=== PATIENT | female | born 1980 | race Caucasian/White ===

== ENCOUNTER 2018-11-04 02:52 | Emergency (ER) | payer BC ==
[2018-11-04] MEDS ORDERED: Sodium Chloride 0.9% 10 ML Syringe FLUSH PRN (03:15)
[2018-11-04] MEDS ORDERED: Famotidine 20 MG/2 ML SDV IVPUSH ONE (03:15)
--- NOTE | 2018-11-04 03:15 | EDM.PDOC ---
ED HPI GENERAL MEDICAL PROBLEM - General Chief Complaint: Chest Pain Stated Complaint: epigastric pain Time Seen by Provider: 11/04/18 03:10 Source of Information: Reports: Family (). Denies: Old Records (No [facility] records available) History Limitations: Reports: No Limitations - History of Present Illness INITIAL COMMENTS - FREE TEXT/NARRATIVE: The patient was brought to the emergency room via private automobile by her for evaluation of 10/10 sharp superior epigastric pain with symptoms starting at about 23:30 hours this evening. Patient did take one dose of Prilosec at that time with additional 2 OTC antacid tablets at about 00:30 hours with no improvement of her symptoms. She did have some kenyan fries at about 10:30 a.m., however no previous history of fatty food intolerance. LMP about one week ago was normal. She did have a normal bowel movement at about midnight this evening. No history of colic, gross hematuria, or other UTI symptoms. No recent history of other abdominal pain, nausea, diarrhea, melena, gross hematochezia, or any food intolerance. The patient denies any chest pain/ pressure, heart flutter, dizziness, orthostasis, orthopnea, diaphoresis, paresthesias, recent decreased exercise tolerance, or any other anginal-type symptoms. The patient also denies any recent fever, cough, wheezing, dyspnea, etc.. Onset: Gradual Onset Date: 11/03/18 Onset Time: 23:30 Duration: Constant, Getting Worse Location: Reports: Abdomen. Denies: Head, Face, Neck, Chest, Back, Pelvis, Upper Extremity, Left, Upper Extremity, Right, Radiates to Quality: Reports: Same as Previous Episode, Sharp Severity: Severe Improves with: Reports: None Worsens with: Reports: None Context: Reports: Other (As above) Associated Symptoms: Reports: No Other Symptoms. Denies: Confusion, Chest Pain , Cough, Diaphoresis, Fever/Chills, Headaches, Loss of Appetite, Malaise, Nausea /Vomiting, Seizure, Shortness of Breath, Syncope, Weakness Treatments OFFAL BALER: Reports: Other Medication(s) Epigastric Pain Score (Numeric/FACES): 10 - Related Data Allergies Allergy/AdvReac Type Severity Reaction Status Date / Time guaifenesin [From Mucinex] AdvReac Numbness Verified 11/04/18 03:00 Home Meds: Home Meds Calcium Carb/Magnesium Hydrox [Antacid Chewable Tablet] 2 each PO QID PRN [History] Famotidine [Pepcid] 20 mg PO BID PRN #30 tab 11/04/18 [Rx] Multivitamin [Multi-Day Vitamins] 1 each PO DAILY 11/04/18 [History] Omeprazole Magnesium [Prilosec Otc] 20 mg PO BIDAC #20 tablet. 11/04/18 [Rx] Past Medical History HEENT History: Reports: Impaired Vision, Other (See Below). Denies: Allergic Rhinitis, Cataract, Glaucoma, Hard of Hearing, Macular Degeneration, Otitis Media, Retinal Detachment Other HEENT History: Patient wears glasses and soft contact lenses. Cardiovascular History: Reports: None, Other (See Below). Denies: Aneurysm, Arrhythmia, Blood Clots/VTE/DVT, CAD, Heart Failure, Heart Murmur, High Cholesterol, Hypertension, NC, Syncope Other Cardiovascular History: She does not know her cholesterol status. Respiratory History: Reports: None. Denies: Asthma, Bronchitis, Recurrent, COPD , Intubation, Difficult, Intubation, Previous, PE, Pneumothorax, Sleep Apnea, TB Gastrointestinal History: Reports: None. 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 Denies: Dysfunctional Uterine Bleeding, Endometriosis, Fibroids, Polycystic Ovaries, Spontaneous : 2 LMP (Approximate): Other (See Below) Other MULTIFOLD OPERATOR History: LMP one week ago as above. C-sections 2 secondary to failure to progress with no other problems during pregnancies or deliveries. Musculoskeletal History: Reports: None. Denies: Arthritis, Back Pain, Chronic, Fracture, Gout, Neck Pain, Chronic, Osteoarthritis, RA, SLE Neurological History: Reports: None, Headaches, Chronic. Denies: Cerebral Aneurysms, Concussion, CVA, Head Trauma, Migraines, Neuropathy, Peripheral, Seizure, TIA, Vertigo Psychiatric History: Reports: Anxiety, Depression. Denies: Abuse, Victim of, ADD, ADHD, Addiction, Psych Hospitalization(s), PTSD, Suicide Attempt, Suicidal Ideation Endocrine/Metabolic History: Reports: None. Denies: Diabetes, Gestational, Diabetes, Type I, Diabetes, Type II, Diabetes Mellitus, Type 3c, Hypothyroidism , IDDM, Obesity/BMI 30+ Hematologic History: Reports: None. Denies: Anemia, Blood Transfusion(s), Iron Deficiency Immunologic History: Reports: None. Denies: AIDS, HIV, SLE Oncologic (Cancer) History: Reports: None. Denies: Basal Cell Carcinoma, Breast , Cervix, Hodgkin's Lymphoma, Leukemia, Lymphoma, Malignant Melanoma, Non- Hodgkin's Lymphoma, Ovarian, Squamous Cell Carcinoma, Uterine Dermatologic History: Reports: None. Denies: Eczema, Psoriasis - Infectious Disease History Infectious Disease History: Reports: Chicken Pox. Denies: C-Difficile, Measles , Meningitis, Mononucleosis, MRSA, Mumps, Pertussis (Whooping Cough), Rheumatic Fever, Rubella, Scarlet Fever, Shingles, TB, VRE - Past Surgical History Head Surgeries/Procedures: Reports: None HEENT Surgical History: Reports: Eye Surgery, Oral Surgery, Other (See Below). Denies: Adenoidectomy, Cataract Surgery, Laser Surgery, LASIK, Myringotomy w Tube(s), Naso-Sinus Surgery, Tonsillectomy Other HEENT Surgeries/Procedures: [place] teeth extraction 3 in about 2014. 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 Cardiovascular Surgical History: Reports: None. Denies: Varicose, Vascular Surgery Respiratory Surgical History: Reports: None. Denies: Thoracentesis GI Surgical History: Reports: None. Denies: Appendectomy, Cholecystectomy, Colonoscopy, EGD, Hernia, Abdominal, Hernia, Inguinal, Hernia Repair/Other Female Surgical History: Reports: Section. Denies: Breast Biopsy, Breast Implant, Cervical Cryotherapy, D&C, LEEP, Tubal Ligation Endocrine Surgical History: Reports: None. Denies: Thyroid Biopsy Neurological Surgical History: Reports: None. Denies: C-Spine, Discectomy, Laminectomy, Lumbar Spine, Sacral Spine, Spinal Fusion, Thoracic Spine, Vertebroplasty Musculoskeletal Surgical History: Reports: None. Denies: Arthroscopic Procedure , Carpal Tunnel, Ganglion Cyst, ORIF, Shoulder Surgery Oncologic Surgical History: Reports: None Dermatological Surgical History: Reports: None - Past Imaging History Past Imaging History: Reports: None Social & Family History - Tobacco Use Smoking Status *Q: Former Smoker Tobacco Use Within Last Twelve Months: No Years of Tobacco use: 11 Packs/Tins Daily: 0.5 Packs/Tins Daily Comment: Smoked between ages 16 and 27. Used Tobacco, but Quit: Yes Smoking Cessation Information Provided To Patient: No Second Hand Smoke Exposure: No Second Hand Smoke Education Provided: No - Caffeine Use Caffeine Use: Reports: Coffee (25 cups per day). Denies: Energy Drinks, Soda, Tea - Alcohol Use Alcohol Use History: Yes Days Per Week of Alcohol Use: 1 Number of Drinks Per Day: 3 Number of Drinks Per Day Comment: Usually mixed drinks. No previous DWIs, problems with alcohol abuse, etc. Total Drinks Per Week: 3 Alcohol Use in Last Twelve Months: Yes Alcohol Use Frequency: Weekly - Recreational Drug Use Recreational Drug Use: No Drug Use in Last 12 Months: No Recreational Drug Type: Denies: Amphetamines (Speed), Cocaine, Heroin, Inhalants (Glues, Solvents, Aerosols), LSD (Acid), Marijuana/Hashish, Methamphetamine, Morphine, Oxycodone - Living Situation & Occupation Living situation: Reports: (2006, 2 children), with Family Occupation: Unemployed ED ROS GENERAL - Review of Systems Review Of Systems: ROS reveals no pertinent complaints other than HPI. ED EXAM, GI/ABD - Physical Exam Exam: See Below Exam Limited By: No Limitations General Appearance: Alert, WD/WN, No Apparent Distress Eyes: Bilateral: Normal Appearance (Patient wearing glasses, no nystagmus), EOMI Ears: Normal External Exam, Normal Canal, Hearing Grossly Normal, Normal TMs Nose: Normal Inspection, Normal Mucosa, No Blood Throat/Mouth: Normal Inspection, Normal Lips, Normal Teeth, Normal Gums, Normal Oropharynx, Normal Voice, No Airway Compromise. No: Dysphagia, Perioral Cyanosis Head: Atraumatic, Normocephalic. No: Facial Swelling, Sinus Tenderness Neck: Normal Inspection, Supple, Non-Tender, Full Range of Motion. No: Carotid Bruit, Lymphadenopathy (L), Lymphadenopathy (R), Thyromegaly Respiratory/Chest: No Respiratory Distress, Lungs Clear, Normal Breath Sounds, No Accessory Muscle Use, Chest Non-Tender. No: Pleural Rub, Retractions Cardiovascular: Normal Peripheral Pulses, Regular Rate, Rhythm, No Edema, No Gallop, No JVD, No Murmur, No Rub. No: Gallop/S3, Gallop/S4, Friction Rub GI/Abdominal Exam: Normal Bowel Sounds, Soft, No Organomegaly, No Distention, No Abnormal Bruit, No Mass, Pelvis Stable, Tender (Mild midepigastric palpation pain), Other (Obese). No: Non-Tender, Guarding, Rebound (Female) Exam: Deferred Rectal (Female) Exam: Deferred Back Exam: Normal Inspection, Full Range of Motion. No: CVA Tenderness (L), CVA Tenderness (R), Muscle Spasm Extremities: Normal Inspection, Normal Range of Motion, Non-Tender, No Pedal Edema, Normal Capillary Refill. No: Desirae's Sign Neurological: Alert, Oriented, CN II-XII Intact, Normal Cognition, Normal Gait, Normal Reflexes (Negative Babinski's), No Motor/Sensory Deficits Psychiatric: Normal Affect, Normal Mood Skin Exam: Warm, Dry, Intact, Normal Color, No Rash, Stud(s) (Left nasal). No: Diaphoretic, Pallor, Tattoo(s), Wound/Incision Lymphatic: No Adenopathy EKG INTERPRETATION EKG Date: 11/04/18 Time: 02:55 Rhythm: NSR Rate (Beats/Min): 72 [place]: Normal (Neutral) P-Wave: Present QRS: Normal (0.08 seconds) ST-T: Normal (T-wave inversion in lead V1) QT: Normal GA/PQ Interval: 0.13 seconds representing a short GA interval Comparison: NA - No Prior EKG EKG Interpretation Comments: 1. No acute ischemic changes. 2. Short GA interval. Course - Vital Signs Last Recorded V/S: Last Vital Signs Temp 36.4 C 11/04/18 02:55 Pulse 86 11/04/18 04:10 Resp 18 11/04/18 04:10 BP 122/77 11/04/18 04:10 Pulse Ox 99 11/04/18 04:10 Vital Signs - 24 hr 11/04/18 11/04/18 11/04/18 02:55 03:10 03:25 Temperature [ 36.4 C Axillary] Pulse, 73 74 75 Peripheral [ Pulse Oximetry] Respiratory 20 20 18 Rate Blood Pressure 117/72 109/70 115/70 [Right Upper Arm] O2 Sat by Pulse 98 98 100 Oximetry 11/04/18 11/04/18 03:40 04:10 Temperature [ Axillary] Pulse, 76 86 Peripheral [ Pulse Oximetry] Respiratory 18 18 Rate Blood Pressure 116/67 122/77 [Right Upper Arm] O2 Sat by Pulse 99 99 Oximetry - Orders/Labs/Meds Orders: Active Orders 24 hr Category Date Time Status Cardiac Monitoring [RC] . DIRECTED Care 11/04/18 03:20 Active EKG Documentation Completion [RC] ASDIRECTED Care 11/04/18 03:20 Active Peripheral IV Care [RC] . DIRECTED Care 11/04/18 03:16 Active Abdomen Series w Chest 1V [CR] Stat Exams 11/04/18 03:15 Taken Obtain Past Medical Record [OM.PC] Urgent Oth 11/04/18 03:15 Active Peripheral IV Insertion Adult [OM.PC] Stat Oth 11/04/18 03:15 Ordered Resuscitation Status Stat Resus Stat 11/04/18 03:15 Ordered EKG 12 Lead [EK] Stat Ther 11/04/18 03:20 Ordered Labs: Laboratory Tests 11/04/18 11/04/18 11/04/18 Range/Units 03:30 03:30 03:30 WBC 9.0 (4.0-10.2) K/uL RBC 4.45 (3.77-5.09) M/uL Hgb 13.0 (11.7-15.5) g/dL Hct 35.1 (34.0-46.0) % MCV 78.9 L (84.0-98.0) fL MCH 29.2 (28.2-33.3) pg MCHC 37.0 H (31.7-36.0) g/dL RDW 15.5 H (11.2-14.1) % Plt Count 222 (150-350) K/uL Neut % (Auto) 68.2 (45.0-80.0) % Lymph % (Auto) 22.1 (10.0-50.0) % [place] % (Auto) 6.8 (2.0-14.0) % Eos % (Auto) 2.5 (0.0-5.0) % Baso % (Auto) 0.4 (0.0-2.0) % Neut # (Auto) 6.10 (1.40-7.00) K/uL Lymph # (Auto) 1.98 (0.50-3.50) K/uL [place] # (Auto) 0.61 (0.00-1.00) K/uL Eos # (Auto) 0.22 (0.00-0.50) K/uL Baso # (Auto) 0.04 (0.00-0.20) K/uL PT 10.7 (9.5-12.0) SEC INR 1.0 APTT 24.8 (21.0-31.3) SEC D-Dimer, Quantitative (0-400) ng/mL Sodium (136-145) mmol/L Potassium (3.5-5.1) mmol/L Chloride (98-107) mmol/L Carbon Dioxide (21.0-32.0) mmol/L BUN (7-18) mg/dL Creatinine (0.51-1.17) mg/dL Est Cr Clr Drug Dosing mL/min Estimated GFR (MDRD) mL/min Glucose (74-106) mg/dL Lactic Acid (0.4-2.0) mmol/L Uric Acid (2.6-7.2) mg/dL Calcium (8.5-10.1) mg/dL Magnesium (1.8-2.4) mg/dL Total Bilirubin (0.2-1.0) mg/dL AST (15-37) U/L ALT (12-78) U/L Alkaline Phosphatase (46-116) IU/L Creatine Kinase (26-308) U/L Creatine Kinase Index (0.0-2.5) % CK-MB (CK-2) (0.00-3.60) ng/mL Troponin I (0.000-0.056) ng/mL Total Protein (6.4-8.2) g/dL Albumin (3.4-5.0) g/dL Amylase 45 (25-115) U/L Lipase (73-393) U/L HCG, Qual (NEGATIVE) 11/04/18 11/04/18 11/04/18 Range/Units 03:30 03:30 03:30 WBC (4.0-10.2) K/uL RBC (3.77-5.09) M/uL Hgb (11.7-15.5) g/dL Hct (34.0-46.0) % MCV (84.0-98.0) fL MCH (28.2-33.3) pg MCHC (31.7-36.0) g/dL RDW (11.2-14.1) % Plt Count (150-350) K/uL Neut % (Auto) (45.0-80.0) % Lymph % (Auto) (10.0-50.0) % [place] % (Auto) (2.0-14.0) % Eos % (Auto) (0.0-5.0) % Baso % (Auto) (0.0-2.0) % Neut # (Auto) (1.40-7.00) K/uL Lymph # (Auto) (0.50-3.50) K/uL [place] # (Auto) (0.00-1.00) K/uL Eos # (Auto) (0.00-0.50) K/uL Baso # (Auto) (0.00-0.20) K/uL PT (9.5-12.0) SEC INR APTT (21.0-31.3) SEC D-Dimer, Quantitative (0-400) ng/mL Sodium 136 (136-145) mmol/L Potassium 4.0 (3.5-5.1) mmol/L Chloride 102 (98-107) mmol/L Carbon Dioxide 25.1 (21.0-32.0) mmol/L BUN 14 (7-18) mg/dL Creatinine 0.76 (0.51-1.17) mg/dL Est Cr Clr Drug Dosing 93.94 mL/min Estimated GFR (MDRD) > 60 mL/min Glucose 197 H (74-106) mg/dL Lactic Acid 1.6 (0.4-2.0) mmol/L Uric Acid 4.9 (2.6-7.2) mg/dL Calcium 8.5 (8.5-10.1) mg/dL Magnesium 1.8 (1.8-2.4) mg/dL Total Bilirubin 0.5 (0.2-1.0) mg/dL AST 142 H (15-37) U/L ALT 107 H (12-78) U/L Alkaline Phosphatase 94 (46-116) IU/L Creatine Kinase 88 (26-308) U/L Creatine Kinase Index 0.7 (0.0-2.5) % CK-MB (CK-2) 0.60 (0.00-3.60) ng/mL Troponin I 0.000 (0.000-0.056) ng/mL Total Protein 7.2 (6.4-8.2) g/dL Albumin 3.6 (3.4-5.0) g/dL Amylase (25-115) U/L Lipase 171 (73-393) U/L HCG, Qual Negative (NEGATIVE) 11/04/18 Range/Units 03:30 WBC (4.0-10.2) K/uL RBC (3.77-5.09) M/uL Hgb (11.7-15.5) g/dL Hct (34.0-46.0) % MCV (84.0-98.0) fL MCH (28.2-33.3) pg MCHC (31.7-36.0) g/dL RDW (11.2-14.1) % Plt Count (150-350) K/uL Neut % (Auto) (45.0-80.0) % Lymph % (Auto) (10.0-50.0) % [place] % (Auto) (2.0-14.0) % Eos % (Auto) (0.0-5.0) % Baso % (Auto) (0.0-2.0) % Neut # (Auto) (1.40-7.00) K/uL Lymph # (Auto) (0.50-3.50) K/uL [place] # (Auto) (0.00-1.00) K/uL Eos # (Auto) (0.00-0.50) K/uL Baso # (Auto) (0.00-0.20) K/uL PT (9.5-12.0) SEC INR APTT (21.0-31.3) SEC D-Dimer, Quantitative 478 H (0-400) ng/mL Sodium (136-145) mmol/L Potassium (3.5-5.1) mmol/L Chloride (98-107) mmol/L Carbon Dioxide (21.0-32.0) mmol/L BUN (7-18) mg/dL Creatinine (0.51-1.17) mg/dL Est Cr Clr Drug Dosing mL/min Estimated GFR (MDRD) mL/min Glucose (74-106) mg/dL Lactic Acid (0.4-2.0) mmol/L Uric Acid (2.6-7.2) mg/dL Calcium (8.5-10.1) mg/dL Magnesium (1.8-2.4) mg/dL Total Bilirubin (0.2-1.0) mg/dL AST (15-37) U/L ALT (12-78) U/L Alkaline Phosphatase (46-116) IU/L Creatine Kinase (26-308) U/L Creatine Kinase Index (0.0-2.5) % CK-MB (CK-2) (0.00-3.60) ng/mL Troponin I (0.000-0.056) ng/mL Total Protein (6.4-8.2) g/dL Albumin (3.4-5.0) g/dL Amylase (25-115) U/L Lipase (73-393) U/L HCG, Qual (NEGATIVE) Meds: Medications Discontinued Medications Generic Name Dose Route Start Last Admin Trade Name Freq PRN Reason Stop Dose Admin Al Hydroxide/Mg Hydroxide 30 ml 11/04/18 03:17 11/04/18 03:20 Gi Cocktail PO 11/04/18 03:18 30 ml ONETIME ONE Administration Famotidine 40 mg 11/04/18 03:15 11/04/18 03:30 Pepcid IVPUSH 11/04/18 03:16 40 mg ONETIME ONE Administration Meperidine HCl 50 mg 11/04/18 03:47 11/04/18 03:58 Demerol IM 11/04/18 03:48 50 mg ONETIME ONE Administration Promethazine HCl 50 mg 11/04/18 03:47 11/04/18 03:57 Phenergan IM 11/04/18 03:48 50 mg ONETIME ONE Administration Sodium Chloride 10 ml 11/04/18 03:15 11/04/18 03:30 Saline Flush FLUSH 10 ml ASDIRECTED PRN Administration Keep Vein Open - Radiology Interpretation Free Text/Narrative:: athletic monitor shows normal sinus rhythm in the 70s to 80s with no ectopy or arrhythmia. Acute abdominal x-ray shows a somewhat poor respiratory film. Moderate diffuse stool with nonspecific bowel gaseous pattern with no free air, fluid levels, ileus, obstruction, pulmonary infiltrates, cardiomegaly, CHF, pneumothorax, etc.. Questionable right upper quadrant calcification consistent with cholelithiasis, however official x-ray report does not indicate this finding. Departure - Departure Time of Disposition: 05:20 Disposition: Home, Self-Care 01 Condition: Good Clinical Impression: Abdominal pain, Obesity (BMI 35.0-39.9 without comorbidity), Peptic reflux disease, Elevated LFTs, Elevated d-dimer - Discharge Information *PRESCRIPTION DRUG MONITORING PROGRAM REVIEWED*: Not Applicable *COPY OF PRESCRIPTION DRUG MONITORING REPORT IN PATIENT LITO: Not Applicable Prescriptions: Famotidine [Pepcid] 20 mg PO BID PRN #30 tab PRN Reason: Abdominal Pain Omeprazole Magnesium [Prilosec Otc] 20 mg PO BIDAC #20 tablet.dr Instructions: Promethazine injection, Meperidine injection, Heart-Healthy Eating Plan, [id number], Liver Function Tests, Famotidine injection, Gastroesophageal Reflux Disease, Adult, [id number] Referrals: PCP,None [Primary Care Provider] - Forms: ED Department Discharge Additional Instructions: 1. Followup with your regular provider in 5-7 days as directed for reevaluation and recommended repeat CBC, comprehensive metabolic panel, lipase, and amylase with additional follow-up 12 hour fasting lipid profile. Bring these discharge instructions with you to that visit with discussion of final ultrasound reports at that time as below. 2. Tylenol 650 mg by mouth every 4 hours when necessary as directed. 3. [place] diet including encouragement of oral fluids such as sports drinks, etc. for 24-48 hours as directed. Advance to strict low-fat, low-cholesterol diet as tolerated thereafter. 4. Discuss possible further workup at the above follow-up visit, including possible stool specimen for H. pylori antigen, hepatitis screen, CT scan of the abdomen and pelvis, HIDA scan, EGD, etc. depending on your clinical course and symptoms at follow-up. 5. Note increase of your current Prilosec therapy. You may use additional OTC Pepcid, antacids, as needed per labeled and above discharge instructions 6. Sedation precautions with no driving, etc. for 18 hours because of emergency room medications. 7. Immediately after this visit verify that your cellular telephone's voicemail has been activated and is empty. Also verify that your home telephone 's answering machine is operating properly and has space to receive messages. Note that it is sometimes necessary for us to be able to contact you at a later date to discuss your medical care. 8. Please remember that we are ALWAYS here for you and want to answer any questions you may have. Feel free to call the hospital any time and we call you back [facility]. 9. This facility will call you later today for scheduling of complete abdominal ultrasound and venous Doppler studies of your legs bilaterally on . Do not leave this facility until I gave you a preliminary verbal report of these findings with final results to be discussed with your regular provider at follow-up as above. - Problem List & Annotations (1) Abdominal pain SNOMED Code(s): 45736495 Code(s): R10.9 - UNSPECIFIED ABDOMINAL PAIN Status: Acute Priority: High Onset Date: 11/04/18 Annotation/Comment:: Symptoms improved with aggressive treatment as above. Suspect cholelithiasis and/or dysfunctional gallbladder. Note moderate LFTs elevation with normal total bilirubin, amylase and lipase with no leukocytosis, fever, etc. Antibiotic therapy is not indicated. Various therapeutic options were given to the patient and her , who are in agreement with the treatment plan. Abdominal ultrasound on an outpatient basis [facility]. No known exposure to hepatitis, etc.. Further GI workup depending on her clinical course as per discharge instructions. Note patient was apparently somewhat diaphoretic initially upon arrival to the emergency room by the nurse's history, however resolved at time of my initial evaluation. Cardiac enzymes and EKG are normal with no true chest pain or anginal complaints. Qualifiers: Abdominal location: epigastric Qualified Code(s): R10.13 - Epigastric pain (2) Obesity (BMI 35.0-39.9 without comorbidity) SNOMED Code(s): 579034550, 595927192 Code(s): E66.9 - OBESITY, UNSPECIFIED Status: Chronic Priority: Medium Annotation/Comment:: Lipid panel to be conducted at time of follow-up. Note LFTs elevation with possibility of fatty liver. Low-fat, low-cholesterol diet information provided. Weight loss in moderation advisable. (3) Peptic reflux disease SNOMED Code(s): 159187098 Code(s): K21.9 - GASTRO-ESOPHAGEAL REFLUX DISEASE WITHOUT ESOPHAGITIS Status: Chronic Priority: Medium Annotation/Comment:: Increase Prilosec to twice a day basis for now. Further GI workup as per discharge instructions. Her symptoms had been previously stable with when necessary Prilosec use by history. (4) Elevated LFTs SNOMED Code(s): 078119390, 094981464 Code(s): R94.5 - ABNORMAL RESULTS OF LIVER FUNCTION STUDIES Status: Acute Priority: High Onset Date: 11/04/18 Annotation/Comment:: As above (5) Elevated d-dimer SNOMED Code(s): 909462080 Code(s): R79.89 - OTHER SPECIFIED ABNORMAL FINDINGS OF BLOOD CHEMISTRY Status: Acute Priority: High Onset Date: 11/04/18 Annotation/Comment:: No clinical indication of DVT or PE. Only mildly elevated d-dimer with no clinical indication for CTA of the chest at this time. Venous Doppler studies of the lower extremities to be conducted on an outpatient basis. - Problem List Review Problem List Initiated/Reviewed/Updated: Yes - My Orders Last 24 Hours: My Active Orders 11/04/18 03:15 Abdomen Series w Chest 1V [CR] Stat Obtain Past Medical Record [OM.PC] Urgent Peripheral IV Insertion Adult [OM.PC] Stat Resuscitation Status Stat 11/04/18 03:16 Peripheral IV Care [RC] . DIRECTED 11/04/18 03:20 Cardiac Monitoring [RC] . DIRECTED EKG Documentation Completion [RC] ASDIRECTED EKG 12 Lead [EK] Stat - Assessment/Plan Last 24 Hours: My Active Orders 11/04/18 03:15 Abdomen Series w Chest 1V [CR] Stat Obtain Past Medical Record [OM.PC] Urgent Peripheral IV Insertion Adult [OM.PC] Stat Resuscitation Status Stat 11/04/18 03:16 Peripheral IV Care [RC] . DIRECTED 11/04/18 03:20 Cardiac Monitoring [RC] . DIRECTED EKG Documentation Completion [RC] ASDIRECTED EKG 12 Lead [EK] Stat Assessment:: As above Plan: As above. Extensive precautions were given to the patient and her , who are in agreement with the treatment plan. See Patient Instructions for further treatment and plan.
[2018-11-04] MEDS ORDERED: GI Cocktail Oral Solution 30 ML PO ONE (03:17)
[2018-11-04] MEDS ORDERED: Promethazine 25 MG/ML SDV IM ONE (03:47)
[2018-11-04] MEDS ORDERED: Meperidine PF 50 MG/ML Amp IM ONE (03:47)
[2018-11-04 04:06] LABS: CHLORIDE,CL 102 mmol/L (98-107); SODIUM,NA 136 mmol/L (136-145)
== END 2018-11-04 05:20 | disposition home or self-care (01) ==
LOC: LL.ED 02:52
DX: K21.9 Gastro-esophageal reflux disease without esophagitis (principal); R10.9 Unspecified abdominal pain; E66.9 Obesity, unspecified; Z68.35 Body mass index [BMI] 35.0-35.9, adult; R79.89 Other specified abnormal findings of blood chemistry; Z87.891 Personal history of nicotine dependence; Z79.899 Other long term (current) drug therapy; Z88.8 Allergy status to other drugs, medicaments and biological substances
CPT/HCPCS: 36415; 74022; 80053; 82150; 82550; 82553; 83605; 83690; 83735; 84484; 84550; 84703; 85025; 85379; 85610; 85730; 93005; 96372; 96374; 99285-25; A9270-GY; J2175; J2550; J3490

== ENCOUNTER 2021-02-06 21:00 | Emergency (ER) | payer BC ==
[2021-02-06] MEDS ORDERED: diphenhydrAMINE 50 MG/ML SDV IM ONE (21:03)
[2021-02-06] MEDS ORDERED: HYDROmorphone 1 MG/ML Syringe IM ONE (21:03)
[2021-02-06] MEDS ORDERED: Ketorolac 60 MG/2 ML SDV IM ONE (21:04)
[2021-02-06] MEDS ORDERED: Ondansetron 4 MG Tab.DIS PO ONE (21:04)
[2021-02-06] MEDS ORDERED: GI Cocktail Oral Solution 30 ML PO ONE (21:38)
[2021-02-06 22:12] LABS: ANION GAP 9.6 meq/L (7-15); CHLORIDE,CL 104 mmol/L (98-107); SODIUM,NA 140 mmol/L (136-145)
--- NOTE | 2021-02-06 22:47 | EDM.PDOC ---
ED HPI GENERAL MEDICAL PROBLEM - General Chief Complaint: Abdominal Pain Stated Complaint: Epigastric pain, Gall bladder attack Time Seen by Provider: 02/06/21 21:12 Source of Information: Reports: Patient History Limitations: Reports: No Limitations - History of Present Illness INITIAL COMMENTS - FREE TEXT/NARRATIVE: Patient comes to ER with epigastric pain. Feels like gallbladder attack that brought her to ER in October of 2018. Pain resolved after receiving an injection. She did have extensive testing including US and only finding was gallstones. Was told to follow up for this and look into gallbladder surgery but did not follow through. Looked on internet and found advice to drink apple juice when she felt like she might be having a gallbladder attack and she says that this seemed to work well. But tonight pain was "beyond apple juice". Pain was very sharp and sudden, starting around 3pm. Unrelenting. Denies any other changes. No fever/chills. No HEENT/CV/Resp changes. No vomiting. Pain does not radiate. No bowel changes. No back pain/dysuria/hematuria. No other acute changes. - Related Data Allergies Allergy/AdvReac Type Severity Reaction Status Date / Time guaifenesin [From Mucinex] AdvReac Numbness Verified 11/04/18 03:00 Home Meds: Home Meds Multivitamin [Multi-Day Vitamins] 1 each PO DAILY 11/04/18 [History] Ondansetron [Zofran ODT] 4 mg PO Q6H PRN #10 tab.dis 02/06/21 [Rx] traMADol [Ultram] 50 mg PO Q4H PRN #10 tab 02/06/21 [Rx] Past Medical History HEENT History: Reports: Impaired Vision, Other (See Below). Denies: Allergic Rhinitis, Cataract, Glaucoma, Hard of Hearing, Macular Degeneration, Otitis Media, Retinal Detachment Other HEENT History: Patient wears glasses and soft contact lenses. Cardiovascular History: Reports: None, Other (See Below). Denies: Aneurysm, Arrhythmia, Blood Clots/VTE/DVT, CAD, Heart Failure, Heart Murmur, High Cholesterol, Hypertension, [place], Syncope Other Cardiovascular History: She does not know her cholesterol status. Respiratory History: Reports: None. 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 C-sections 2 secondary to failure to progress with no other problems during pregnancies or deliveries. Musculoskeletal History: Reports: None. Denies: Arthritis, Back Pain, Chronic, Fracture, Gout, Neck Pain, Chronic, Osteoarthritis, RA, SLE Neurological History: Reports: None, Headaches, Chronic. Denies: Cerebral Aneurysms, Concussion, CVA, Head Trauma, Migraines, Neuropathy, Peripheral, Seizure, TIA, Vertigo Psychiatric History: Reports: Anxiety, Depression. Denies: Abuse, Victim of, ADD, ADHD, Addiction, Psych Hospitalization(s), PTSD, Suicide Attempt, Suicidal Ideation Endocrine/Metabolic History: Reports: None. Denies: Diabetes, Gestational, Diabetes, Type I, Diabetes, Type II, Diabetes Mellitus, Type 3c, Hypothyroidism, IDDM, Obesity/BMI 30+ Hematologic History: Reports: None. Denies: Anemia, Blood Transfusion(s), Iron Deficiency Immunologic History: Reports: None. Denies: AIDS, HIV, SLE Oncologic (Cancer) History: Reports: None. Denies: Basal Cell Carcinoma, Breast, Cervix, Hodgkin's Lymphoma, Leukemia, Lymphoma, Malignant Melanoma, Non- Hodgkin's Lymphoma, Ovarian, Squamous Cell Carcinoma, Uterine Dermatologic History: Reports: None. Denies: Eczema, Psoriasis - Infectious Disease History Infectious Disease History: Reports: Chicken Pox. Denies: C-Difficile, Measles, Meningitis, Mononucleosis, MRSA, Mumps, Pertussis (Whooping Cough), Rheumatic Fever, Rubella, Scarlet Fever, Shingles, TB, VRE - Past Surgical History Head Surgeries/Procedures: Reports: None HEENT Surgical History: Reports: Eye Surgery, Oral Surgery, Other (See Below). Denies: Adenoidectomy, Cataract Surgery, Laser Surgery, LASIK, Myringotomy w Tube(s), Naso-Sinus Surgery, Tonsillectomy Other HEENT Surgeries/Procedures: [place] teeth extraction 3 in about 2014. 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 Cardiovascular Surgical History: Reports: None. Denies: Varicose, Vascular Surgery Respiratory Surgical History: Reports: None. Denies: Thoracentesis GI Surgical History: Reports: None. Denies: Appendectomy, Cholecystectomy, Colonoscopy, EGD, Hernia, Abdominal, Hernia, Inguinal, Hernia Repair/Other Female Surgical History: Reports: Section. Denies: Breast Biopsy, Breast Implant, Cervical Cryotherapy, D&C, LEEP, Tubal Ligation Endocrine Surgical History: Reports: None. Denies: Thyroid Biopsy Neurological Surgical History: Reports: None. Denies: C-Spine, Discectomy, Laminectomy, Lumbar Spine, Sacral Spine, Spinal Fusion, Thoracic Spine, Vertebroplasty Musculoskeletal Surgical History: Reports: None. Denies: Arthroscopic Proced ure, Carpal Tunnel, Ganglion Cyst, ORIF, Shoulder Surgery Oncologic Surgical History: Reports: None Dermatological Surgical History: Reports: None - Past Imaging History Past Imaging History: Reports: None Social & Family History - Caffeine Use Caffeine Use: Reports: Coffee (25 cups per day). Denies: Energy Drinks, Soda, Tea - Living Situation & Occupation Living situation: Reports: (2006, 2 children), with Family Occupation: Unemployed ED ROS GENERAL - Review of Systems Review Of Systems: Comprehensive ROS is negative, except as noted in HPI. ED EXAM, GENERAL - Physical Exam Exam: See Below Exam Limited By: No Limitations General Appearance: Alert, Moderate Distress, Obese Eye Exam: Bilateral Eye: EOMI, PERRL Ears: Normal External Exam, Normal Canal, Hearing Grossly Normal Nose: No: Nasal Deformity, Nasal Swelling, Nasal Drainage Throat/Mouth: Normal Lips, Normal Voice, No Airway Compromise Head: Atraumatic, Normocephalic Neck: Normal Inspection, Supple, Non-Tender, Full Range of Motion Respiratory/Chest: No Respiratory Distress, Lungs Clear, Normal Breath Sounds, No Accessory Muscle Use, Chest Non-Tender Cardiovascular: Regular Rate, Rhythm, No Murmur GI/Abdominal: Soft, No Distention, Abnormal Bowel Sounds (diminished throughout), Other (mild epigastric tenderness) (Female) Exam: Deferred Rectal (Female) Exam: Deferred Back Exam: No: CVA Tenderness (L), CVA Tenderness (R), Muscle Spasm, Paraspinal Tenderness, Vertebral Tenderness Extremities: Normal Inspection, Normal Range of Motion, Non-Tender, Normal Capillary Refill Neurological: Alert, Oriented, Normal Cognition, Normal Gait, No Motor/Sensory Deficits Psychiatric: Anxious Skin Exam: Warm, Dry, Intact, Normal Color Course - Orders/Labs/Meds Orders: Active Orders 24 hr Category Date Time Status UA W/MICROSCOPIC [URIN] Stat Lab 02/06/21 21:38 Ordered Labs: Laboratory Tests 02/06/21 02/06/21 02/06/21 Range/Units 21:45 21:45 21:45 WBC 4.9 (4.0-10.2) K/uL RBC 4.57 (3.77-5.09) M/uL Hgb 13.2 (11.7-15.5) g/dL Hct 38.6 (34.0-46.0) % MCV 84.5 D (84.0-98.0) fL MCH 28.9 (28.2-33.3) pg MCHC 34.2 (31.7-36.0) g/dL RDW 12.9 (11.2-14.1) % Plt Count 239 (150-350) K/uL Neut % (Auto) 77.8 (45.0-80.0) % Lymph % (Auto) 16.7 (10.0-50.0) % [place] % (Auto) 4.5 (2.0-14.0) % Eos % (Auto) 0.6 (0.0-5.0) % Baso % (Auto) 0.4 (0.0-2.0) % Neut # (Auto) 3.82 (1.40-7.00) K/uL Lymph # (Auto) 0.82 (0.50-3.50) K/uL [place] # (Auto) 0.22 (0.00-1.00) K/uL Eos # (Auto) 0.03 (0.00-0.50) K/uL Baso # (Auto) 0.02 (0.00-0.20) K/uL Sodium 140 (136-145) mmol/L Potassium 3.9 (3.5-5.1) mmol/L Chloride 104 (98-107) mmol/L Carbon Dioxide 26.4 (21.0-32.0) mmol/L Anion Gap 9.6 (7-15) meq/L BUN 14 (7-18) mg/dL Creatinine 0.99 (0.51-1.17) mg/dL Est Cr Clr Drug Dosing TNP Estimated GFR (MDRD) > 60 mL/min Glucose 205 H (70-99) mg/dL Lactic Acid 1.5 (0.4-2.0) mmol/L Calcium 8.2 L (8.5-10.1) mg/dL Magnesium 2.0 (1.8-2.4) mg/dL Total Bilirubin 1.1 H (0.2-1.0) mg/dL AST 283 H (15-37) U/L ALT 227 H (12-78) U/L Alkaline Phosphatase 96 (46-116) IU/L Troponin I High Sens 23 (<=51) ng/L Total Protein 7.3 (6.4-8.2) g/dL Albumin 3.7 (3.4-5.0) g/dL Amylase 40 (25-115) U/L Lipase 124 (73-393) U/L Meds: Medications Discontinued Medications Generic Name Dose Route Start Last Admin Trade Name Freq PRN Reason Stop Dose Admin Al Hydroxide/Mg Hydroxide 30 ml 02/06/21 21:38 02/06/21 22:02 Gi Cocktail Oral Solution 30 Ml PO 02/06/21 21:39 30 ml ONETIME ONE Administration Diphenhydramine HCl 50 mg 02/06/21 21:03 02/06/21 21:13 Diphenhydramine 50 Mg/Ml Sdv IM 02/06/21 21:04 50 mg ONETIME ONE Administration Hydromorphone HCl 1 mg 02/06/21 21:03 02/06/21 21:13 Hydromorphone 1 Mg/Ml Syringe IM 02/06/21 21:04 1 mg ONETIME ONE Administration Ketorolac Tromethamine 60 mg 02/06/21 21:04 02/06/21 21:12 Ketorolac 60 Mg/2 Ml Sdv IM 02/06/21 21:05 60 mg ONETIME ONE Administration Ondansetron HCl 4 mg 02/06/21 21:04 02/06/21 21:12 Ondansetron 4 Mg Tab.Dis PO 02/06/21 21:05 4 mg ONETIME ONE Administration - Re-Assessments/Exams Free Text/Narrative Re-Assessment/Exam: 02/06/21 22:56 Patient initially declined all labs/workup and just wanted pain medication. Chart reviewed and she did receive GI cocktail along with Demerol/Phenergan/Pepcid when evaluated for this same complaint in 2019. Tonight she was given Demerol/Benadryl/Toradol/Zofran and GI cocktail. Once pain started to improve she gave permission for us to draw labs. Declined imaging/EKG. Became pain-free while labwork processing. Normal WBC/Troponin. Has some elevation in AST/ALT and total bili 1.1 Normal lactic Normal amylase and lipase. Recommended to patient that she get repeat US study of RUQ tomorrow and she appeared to be agreeable. She is also now interested in having the gallbladder removed if this indeed appears to be related to cholelithiasis. Has no primary provider. We will request that the clinic get in touch with the patient and arrange an appointment with one of the providers. Further testing and referral to surgery or GI can be performed as needed at that time. She is instructed to return to the ER if she has sudden worsening problems. Patient agreeable with plan. Departure - Departure Time of Disposition: 22:44 Disposition: Home, Self-Care 01 Condition: Good Clinical Impression: Epigastric pain, Hx of cholelithiasis - Discharge Information *PRESCRIPTION DRUG MONITORING PROGRAM REVIEWED*: Not Applicable *COPY OF PRESCRIPTION DRUG MONITORING REPORT IN PATIENT LITO: Not Applicable Prescriptions: traMADol [Ultram] 50 mg PO Q4H PRN #10 tab PRN Reason: Pain Ondansetron [Zofran ODT] 4 mg PO Q6H PRN #10 tab.dis PRN Reason: Nausea Instructions: Cholelithiasis, [id number], Biliary Colic, Adult Referrals: PCP,None [Primary Care Provider] - Forms: ED Department Discharge Additional Instructions: Watch what you eat! Follow up with clinic for recheck and to discuss US study results/further planning. Take Zofran one tab every 6 hours as needed for any nausea and Tramadol 1 tab every 4-6 hours as needed for pain. Return to ER if you have sudden worsening problems. Radiology will contact you to schedule the US study tomorrow. - My Orders Last 24 Hours: My Active Orders 02/06/21 21:38 UA W/MICROSCOPIC [URIN] Stat - Assessment/Plan Last 24 Hours: My Active Orders 02/06/21 21:38 UA W/MICROSCOPIC [URIN] Stat
== END 2021-02-06 22:55 | disposition home or self-care (01) ==
LOC: LL.ED 21:00
DX: R10.9 Unspecified abdominal pain (principal); Z88.8 Allergy status to other drugs, medicaments and biological substances; Z87.19 Personal history of other diseases of the digestive system
CPT/HCPCS: 36415; 80053; 82150; 83605; 83690; 83735; 84484; 85025; 96372; 99284; A9270-GY; J1170; J1200; J1885

== ENCOUNTER 2021-07-05 07:50 | Day surgery (SDC) | payer BC ==
[2021-07-05] MEDS ORDERED: Lactated Ringers 1,000 ML IV SCH (08:00)
[2021-07-05] MEDS ORDERED: Sodium Chloride 0.9% 10 ML Syringe FLUSH PRN (08:00)
[2021-07-05] MEDS ORDERED: fentaNYL 250 MCG/5 ML SDV ONE ×2 (08:33→09:05)
[2021-07-05] MEDS ORDERED: Midazolam 1 MG/ML 2 ML SDV ONE ×2 (08:33→09:05)
[2021-07-05] MEDS ORDERED: Propofol 200 MG/20 ML SDV ONE ×2 (08:33→09:05)
[2021-07-05] MEDS ORDERED: Ondansetron 4 MG/2 ML SDV ONE (09:05)
[2021-07-05] MEDS ORDERED: Succinylcholine 200 MG/10 ML MDV ONE (09:05)
[2021-07-05] MEDS ORDERED: Rocuronium 100 MG/10 ML MDV ONE (09:05)
[2021-07-05] MEDS ORDERED: Neostigmine Methylsulfate 10 MG/10 ML MDV ONE (09:05)
[2021-07-05] MEDS ORDERED: Glycopyrrolate 0.2 MG/ML SDV ONE (09:05)
[2021-07-05] MEDS ORDERED: Dexamethasone 10 MG/ML SDV ONE (09:05)
== END 2021-07-05 12:30 | disposition home or self-care (01) ==
LOC: LL.SDS 07:50
PROVIDERS: ATTEND Surgery
DX: K80.10 Calculus of gallbladder with chronic cholecystitis without obstruction (principal); Z79.899 Other long term (current) drug therapy; Z88.8 Allergy status to other drugs, medicaments and biological substances
CPT/HCPCS: 00790; 81025; J0330; J1100; J2250; J2405; J2704; J2710; J3010; J3490; J7120